=== PATIENT | female | born 1995 | race Two or more races ===

== ENCOUNTER 2019-03-21 16:11 | Emergency (ER) | payer OTHER ==
[2019-03-21 17:03] LABS: Hematocrit 38 % (35-47); Hemoglobin 12.6 g/dL (12.0-16.0); Mean Corpuscular HGB Conc 33 g/dL (31-36); Mean Corpuscular Hemoglobin 27 pg (27-31); Mean Corpuscular Volume 80 fL (80-97); Mean Platelet Volume 9.1 fL (7.4-10.4); Platelet Count 173 10^3/uL (150-450); Red Blood Count 4.69 10^6 /uL (3.70-4.87); Red Cell Distribution Width 15 % (10-15); White Blood Count 8.8 10^3/uL (3.5-10.8)
[2019-03-21 17:19] LABS: Albumin 3.6 g/dL (3.2-5.2); Albumin/Globulin Ratio 1.2 (1-3); BUN/Creatinine Ratio 11.9 (8-20); EGFR African American 134.4 (>60); EGFR Non-African American 111.1 (>60); Globulin 2.9 g/dL (2-4); Potassium 3.7 mmol/L (3.5-5.0); Total Bilirubin 1.4 mg/dL (0.2-1.0); Total Protein 6.5 g/dL (6.4-8.9)
[2019-03-21 17:25] LABS: HCG Pregnancy 0.73 mIU/mL
[2019-03-21 17:40] LABS: ABS Lymphocytes 6.2 10^3/ul (1.0-4.8); ABS Neutrophils 1.5 10^3/ul (1.5-7.7); Eosinophil % 0.3 %; Lymphocyte % 70.7 %; Nucleated Red Blood Cells % 0.2
--- NOTE | 2019-03-21 18:25 | ED ---
Throat Pain/Nasal Congestion - HPI Summary HPI Summary: 23 year old F arriving via private car from [facility] complains of fever since Thursday03/14/2019 and swollen lymph nodes on the right since 2019. Patient seen at [facility] today 03/21/2019 where she had blood work done which showed elevated WBC and LFTs, AST 256, ALT 433 and was tested for mono which was negative. Symptoms rated 2/10 in severity. Symptoms aggravated by nothing. Symptoms alleviated by nothing. No pertinent PMHx. Surgical hx appendectomy 2019. Positive FHx cancer. - History of Current Complaint Chief Complaint: EDGeneral Time Seen by Provider: 03/21/19 18:15 Hx Obtained From: Patient Onset/Duration: Lasting Days, Still Present Severity: Mild - 2/10 - Allergies/Home Medications Allergies/Adverse Reactions: Allergies Allergy/AdvReac Type Severity Reaction Status Date / Time No Known Allergies Allergy Verified 03/21/19 16:19 PMH/Surg Hx/FS Hx/Imm Hx - Surgical History Surgery Procedure, Year, and Place: appendectomy 2019 Infectious Disease History: No Infectious Disease History: Denies: Traveled Outside the [place] in Last 30 Days - Family History Known Family History: Positive: Other - Cancer - Social History Alcohol Use: None Substance Use Type: Reports: None Smoking Status (MU): Never Smoked Tobacco Review of Systems Positive: Fever Positive: Other - swollen lymph nodes on the right All Other Systems Reviewed And Are Negative: Yes Physical Exam - Summary Physical Exam Summary: Constitutional: Well-developed, Well-nourished, Alert. (-) Distressed Skin: Warm, Dry HENT: Normocephalic; Atraumatic Eyes: Conjunctiva normal Neck: Musculoskeletal ROM normal neck. (-) JVD, (-) Stridor, (-) Nuchal rigidity ; right sided cervical lymphadenopathy Cardio: Rhythm regular, rate normal, Heart sounds normal; Intact distal pulses; Radial pulses are 2+ and symmetric. (-) Murmur Pulmonary/Chest wall: Effort normal. (-) Respiratory distress, (-) Wheezes, (-) Rales Abd: Soft, (-) tenderness, (-) Distension, (-) Guarding, (-) Rebound Musculoskeletal: (-) Edema Lymph: (-) Cervical adenopathy Neuro: Alert, Oriented x3 Psych: Mood and affect Normal Triage Information Reviewed: Yes Vital Signs On Initial Exam: Initial Vitals Temp Pulse Resp BP Pulse Ox 100.2 F 96 19 126/81 98 03/21/19 16:16 03/21/19 16:16 03/21/19 16:16 03/21/19 16:16 03/21/19 16:16 Vital Signs Reviewed: Yes Procedures - Sedation Patient Received Moderate/Deep Sedation with Procedure: No Diagnostics - Vital Signs Vital Signs Temp Pulse Resp BP Pulse Ox 03/21/19 17:55 98.9 F 79 16 129/85 98 03/21/19 16:16 100.2 F 96 19 126/81 98 - Laboratory Lab Results: Lab Results 03/21/19 03/21/19 Range/Units 16:53 16:53 WBC 8.8 (3.5-10.8) 10^3/uL RBC 4.69 (3.70-4.87) 10^6 /uL Hgb 12.6 (12.0-16.0) g/dL Hct 38 (35-47) % MCV 80 (80-97) fL MCH 27 (27-31) pg MCHC 33 (31-36) g/dL RDW 15 (10-15) % Plt Count 173 (150-450) 10^3/uL MPV 9.1 (7.4-10.4) fL Neut % (Auto) 17.1 % Lymph % (Auto) 70.7 % [place] % (Auto) 11.5 % Eos % (Auto) 0.3 % Baso % (Auto) 0.4 % Absolute Neuts (auto) 1.5 (1.5-7.7) 10^3/ul Absolute Lymphs (auto) 6.2 H (1.0-4.8) 10^3/ul Absolute Monos (auto) 1.0 H (0-0.8) 10^3/ul Absolute Eos (auto) 0.0 (0-0.6) 10^3/ul Absolute Basos (auto) 0.0 (0-0.2) 10^3/ul Absolute Nucleated RBC 0.0 10^3/ul Neutrophils % 19.0 % Lymphocytes % 37.0 % Reactive Lymphs % 31.0 H (0-6) % Monocytes % 12.0 % Basophils % 1.0 % Nucleated RBC % 0.2 Normal RBC Morphology Normal (Normal) Hem Pathologist Commnt Pending Sodium 137 (135-145) mmol/L Potassium 3.7 (3.5-5.0) mmol/L Chloride 104 (101-111) mmol/L Carbon Dioxide 27 (22-32) mmol/L Anion Gap 6 (2-11) mmol/L BUN 8 (6-24) mg/dL Creatinine 0.67 (0.51-0.95) mg/dL Est GFR ( Amer) 134.4 (>60) Est GFR (Non-Af Amer) 111.1 (>60) BUN/Creatinine Ratio 11.9 (8-20) Glucose 124 H (70-100) mg/dL Calcium 9.0 (8.6-10.3) mg/dL Total Bilirubin 1.40 H (0.2-1.0) mg/dL AST 200 H (13-39) U/L ALT 378 H (7-52) U/L Alkaline Phosphatase 443 H (34-104) U/L Total Protein 6.5 (6.4-8.9) g/dL Albumin 3.6 (3.2-5.2) g/dL Globulin 2.9 (2-4) g/dL Albumin/Globulin Ratio 1.2 (1-3) Beta HCG, Quant 0.73 mIU/mL Monoscreen Positive A (Negative) Result Diagrams: 03/21/19 16:53 03/21/19 16:53 Lab Statement: Any lab studies that have been ordered have been reviewed, and results considered in the medical decision making process. - Radiology CXR Radiology Interpretation Completed By: ED Physician Summary of Radiographic Findings: NO ACUTE ABNORMALITY. PENDING OFFICIAL REPORT EENT Course/Dx - Course Course Of Treatment: 23 y/o F p/w reported abnormal labs at [place]. - here well appearing, has R cervical LAD. - mono +, CBC WNL. CXR neg ( initially reported to have high WBC at [place] but per [facility] appears to have been normal). - suspect LFT elevations 2/2 mono, advised to follow up w [facility] for repeat blood work. tolerating PO. Well appearing here - Diagnoses Provider Diagnoses: Mononucleosis, Elevated LFTs Discharge ED - Sign-Out/Discharge Documenting (check all that apply): Patient Departure - Discharge Plan Condition: Stable Disposition: HOME Patient Education Materials: Mononucleosis (ED) Referrals: [facility] - Levi OJEDA [Primary Care Provider] - Additional Instructions: You were seen in the emergency department for an elevated white count and abnormal liver tests. You are mono positive. Your liver enzymes are slightly elevated, this can be seen and mono. Please follow up with her doctor for repeat blood work in several days. Please do not play any contact sports for the next 4 weeks You can take 600 mg motrin for pain, do not take tylenol Please follow up with your primary care doctor in next 2-3 days and return to emergency department for abdominal pain, worsening or concerning symptoms. It was a pleasure taking care of you today. - Billing Disposition and Condition Condition: STABLE Disposition: Home - Attestation Statements Document Initiated by Mookie: Yes Documenting Scribe: Drea Villagomez Provider For Whom Mookie is Documenting (Include Credential): Matt Melchor MD Scribe Attestation: IDrea, scribed for Matt Melchor MD on 03/22/19 at 1027. Scribe Documentation Reviewed: Yes Provider Attestation: The documentation as recorded by the Drea mccoy accurately reflects the service I personally performed and the decisions made by , Matt Melchor MD Status of Scribmaisha Document: Viewed
[2019-03-21 18:32] VITALS: BP 128/85
== END 2019-03-21 18:31 | disposition home or self-care (01) ==
LOC: ED 16:11
DX: B27.90 Infectious mononucleosis, unspecified without complication (principal); R79.89 Other specified abnormal findings of blood chemistry
CPT/HCPCS: 36415; 71046; 80053; 84702; 85025; 85060; 86308; 99282